=== PATIENT | female | born 1980 | race Caucasian/White ===

== ENCOUNTER 2016-11-30 18:53 | Emergency (ER) | payer BC ==
[2016-11-30 18:54] VITALS: BMI 28.6
[2016-11-30 19:44] VITALS: BP 126/86; RESP 18; TEMP 98.7
--- NOTE | 2016-11-30 19:46 | ED PDOC ---
Arrival/HPI - General Time Seen by Provider: 11/30/16 19:13 Historian: Patient - History of Present Illness Narrative History of Present Illness (Text): 11/30/16 19:30 A 36 year old female, whose past medical history includes recent / delivery and recent cholecystectomy, who presents to the emergency department complaining of a headache and transient high blood pressure since this morning. Patient states she was in the pharmacy earlier today and had her blood pressure check, which showed 140 systolic pressure. Headache is throbbing in sensation and localized to the front of the head. She denies any nausea, vomiting, dizziness, chest pain, shortness of breath, or any other complaints at this time. PMD: Dr. Dukes Time/Duration: 4-6 hours Symptom Onset: Sudden Symptom Course: Unchanged Quality: Throbbing Activities at Onset: Rest Context: Other Past Medical History - Provider Review Nursing Documentation Reviewed: Yes - Cardiac Hx Cardiac Disorders: No - Pulmonary Hx Respiratory Disorders: No - Neurological Hx Neurological Disorder: No - HEENT Hx HEENT Disorder: No - Renal Hx Renal Disorder: No - Endocrine/Metabolic Hx Endocrine Disorders: No - Hematological/Oncological Hx Blood Disorders: No - Integumentary Hx Dermatological Disorder: No - Musculoskeletal/Rheumatological Hx Musculoskeletal Disorders: No - Gastrointestinal Hx Gastrointestinal Disorders: Yes Other/Comment: Gallstones 11/25/2016 - Genitourinary/Gynecological Hx Genitourinary Disorders: No - Psychiatric Hx Psychophysiologic Disorder: No Hx Substance Use: No - Surgical History Hx Cholecystectomy: Yes - Anesthesia Hx Anesthesia: Yes Hx Anesthesia Reactions: No Hx Malignant Hyperthermia: No Family/Social History - Physician Review Nursing Documentation Reviewed: Yes Family/Social History: No Known Family HX Smoking Status: Never Smoked Hx Alcohol Use: No Hx Substance Use: No Allergies/Home Meds Allergies/Adverse Reactions: Allergies No Known Allergies Allergy (Verified 11/14/16 02:16) Review of Systems - Physician Review All systems were reviewed & negative as marked: Yes - Review of Systems Constitutional: Other (high blood pressure) Eyes: Normal ENT: Normal Respiratory: absent: SOB Cardiovascular: absent: Chest Pain Gastrointestinal: absent: Nausea, Vomiting Genitourinary Female: Normal Musculoskeletal: Normal Skin: Normal Neurological: Headache. absent: Dizziness Endocrine: Normal Hemo/Lymphatic: Normal Psychiatric: Normal Physical Exam Vital Signs Reviewed: Yes Vital Signs Temp Pulse Resp BP Pulse Ox 11/30/16 19:25 98.7 F 69 18 126/86 100 Temperature: Afebrile Blood Pressure: Normal Pulse: Regular Respiratory Rate: Normal Appearance: Positive for: Well-Appearing, Non-Toxic, Comfortable Pain Distress: None Mental Status: Positive for: Alert and Oriented X 3 - Systems Exam Head: Present: Atraumatic, Normocephalic Pupils: Present: PERRL Extroacular Muscles: Present: EOMI Conjunctiva: Present: Normal Mouth: Present: Moist Mucous Membranes Neck: Present: Normal Range of Motion Respiratory/Chest: Present: Clear to Auscultation, Good Air Exchange. No: Respiratory Distress, Accessory Muscle Use Cardiovascular: Present: Regular Rate and Rhythm, Normal S1, S2. No: Murmurs Abdomen: Present: Normal Bowel Sounds. No: Tenderness, Distention, Peritoneal Signs Back: Present: Normal Inspection Upper Extremity: Present: Normal Inspection. No: Cyanosis, Edema Lower Extremity: Present: Normal Inspection. No: Edema Neurological: Present: GCS=15, CN II-XII Intact, Speech Normal Skin: Present: Warm, Dry, Normal Color. No: Rashes Psychiatric: Present: Alert, Oriented x 3, Normal Insight, Normal Concentration Medical Decision Making ED Course and Treatment: 11/30/16 19:30 Impression: A 36 year old female with a headache and high blood pressure. Differential Diagnosis include but are not limited to: hypertension vs. tension headache Plan: -- Motrin -- Reassess and disposition Prior Visits: Notes and results from previous visits were reviewed. The patient deliver on . Progress Notes: - Medication Orders Current Medication Orders: Discontinued Medications Ibuprofen (Motrin Tab) 800 mg PO STAT STA Stop: 11/30/16 19:39 Last Admin: 11/30/16 19:53 Dose: 800 MG MAR Pain/Vitals Document 11/30/16 19:53 MR (Rec: 11/30/16 19:53 [facility]-[id number]) Pain Reassessment Is This A Pain ReAssessment? No Sleep Is patient sleeping during reassessment? No Presence of Pain Presence of Pain Yes Pain Scale Used Pain Scale Used Numeric Location Pain Location Body Director Of [employer] Description Pressure Intensity 10 Scale Used Numeric Pain Behavior Crying Facial Grimacing Aggravating Factors None Aggravating Factors None - Scribe Statement The provider has reviewed the documentation as recorded by the Scribe Lety Guadalupe Provider [place] Attestation: All medical record entries made by the Marlene were at my direction and personally dictated by me. I have reviewed the chart and agree that the record accurately reflects my personal performance of the history, physical exam, medical decision making, and the department course for this patient. I have also personally directed, reviewed, and agree with the discharge instructions and disposition. Disposition/Present on Arrival - Present on Arrival Any Indicators Present on Arrival: No History of DVT/PE: No History of Uncontrolled Diabetes: No Urinary Catheter: No History of Decub. Ulcer: No History Surgical Site Infection Following: None - Disposition Have Diagnosis and Disposition been Completed?: Yes Diagnosis: Headache Disposition: HOME/ ROUTINE Disposition Time: 20:24 Patient Plan: Discharge Condition: GOOD Discharge Instructions (ExitCare): Acute Headache (ED), Tension Headache (ED) Additional Instructions: Rest/advil as directed/follow up with your doctor this week Referrals: Mingo Dukes MD [Primary Care Provider] - Follow up with primary
[2016-11-30 20:01] VITALS: PULSE 69; O2SAT 100
== END 2016-11-30 20:20 | disposition home or self-care (01) ==
LOC: ED 18:53
DX: R51 Headache (principal)